=== PATIENT | male | born 1990 | race Caucasian/White ===

== ENCOUNTER 2017-02-13 23:15 | Emergency (ER) | payer MEDICAID ==
[~2017-02-13] VITALS: Ht 157.5 cm; Wt 57.0 kg
[2017-02-14] MEDS ORDERED: METHYLPREDNISOLONE SOD SUCC 125 MG/2 ML VIAL IV ONE
[2017-02-14] MEDS ORDERED: FAMOTIDINE 20MG/2ML VIAL IV ONE
[2017-02-14] MEDS ORDERED: PREDNISONE 20MG TABLET PO ONE (00:15)
[2017-02-14] MEDS ORDERED: FAMOTIDINE 20MG TABLET PO ONE (00:15)
[2017-02-14 00:30] VITALS: BP 135/84
== END 2017-02-14 00:33 | disposition home or self-care (01) ==
LOC: ER 23:51
DX: T78.1XXA Other adverse food reactions, not elsewhere classified, initial encounter (principal); Z20.6 Contact with and (suspected) exposure to human immunodeficiency virus [HIV]; X58.XXXA Exposure to other specified factors, initial encounter
CPT/HCPCS: 99283; J7512